=== PATIENT | male | born 1940 | race Caucasian/White ===

== ENCOUNTER 2016-06-21 11:58 | Outpatient (CLI) | payer MEDICARE, OTHER ==
[2016-06-21 12:44] LABS: Hemoglobin A1c 5.2 % (4.0-6.0)
== END 2016-06-21 11:59 | disposition home or self-care (01) ==
LOC: NAVSJIPCSP 11:58
PROVIDERS: ATTEND Internal Medicine
DX: E11.59 Type 2 diabetes mellitus with other circulatory complications (principal); Z79.899 Other long term (current) drug therapy
CPT/HCPCS: 36415; 83036

== ENCOUNTER 2016-07-23 09:57 | Outpatient (CLI) | payer MEDICARE ==
[2016-07-23 13:08] LABS: Anion Gap 15 mmol/L (10-20); BUN (Urea Nitrogen) 9 mg/dL (8.4-25.7); Calc. Creatinine Clearance 0 mL/min (70-130); Calcium 9.1 mg/dL (7.8-10.44); Carbon Dioxide 22 mmol/L (23-31); Chloride 100 mmol/L (98-107); Estimated GFR-MDRD 66; Glucose 105 mg/dL (83-110); Potassium 4.1 mmol/L (3.5-5.1); Sodium 133 mmol/L (136-145)
[2016-07-23 14:01] LABS: #Eosinphils 0.2 thou/uL (0.0-0.7); #Lymphocytes 0.7 thou/uL (1.20-3.40); #Monocytes 0.8 thou/uL (0.11-0.59); #Neutrophils 5.4 thou/uL (1.40-6.50); %Basophils 0.4 % (0.0-1.0); %Lymphocytes 9.7 % (21.0-51.0); %Monocytes 10.6 % (0.0-10.0); %Neutrophils 76.3 % (42.0-75.0); Hemoglobin 9.7 g/dL (14.0-18.0); Mean Corpuscular HGB CONC 31.1 g/dL (32.0-36.0); Mean Corpuscular Hemoglobin 28.8 pg (27.0-31.0); Mean Corpuscular Volume 92.8 fl (80.0-94.0); Mean Platelet Volume 6.3 fL (7.4-10.4); Platelet Count 134 thou/uL (130-400); RBC Distribution Width 17.3 % (11.5-14.5); Red Blood Cell (RBC) Count 3.35 mill/uL (4.70-6.10); White Blood Cell (WBC) Count 7.1 thou/uL (4.8-10.8)
== END 2016-07-23 09:58 | disposition home or self-care (01) ==
LOC: NAVSJIPCSP 09:57
PROVIDERS: ATTEND Internal Medicine
DX: R53.83 Other fatigue (principal); Z79.899 Other long term (current) drug therapy
CPT/HCPCS: 36415; 80048; 84443; 85025

== ENCOUNTER 2016-09-26 11:47 | Outpatient (CLI) | payer MEDICARE ==
[2016-09-26 14:00] LABS: Cardiac Risk 1.9 (Less than 4.5)
[2016-09-27 18:07] LABS: Hep C IgG Ab Non-Reactive (NonReactive); Hep C Index 0.23 S/CO (0-0.79)
== END 2016-09-26 11:48 | disposition home or self-care (01) ==
LOC: NAVSJIPCSP 11:47
PROVIDERS: ATTEND Internal Medicine
DX: E78.5 Hyperlipidemia, unspecified (principal); E11.59 Type 2 diabetes mellitus with other circulatory complications; Z72.89 Other problems related to lifestyle
CPT/HCPCS: 36415; 80061; 83036; 86803

== ENCOUNTER 2017-07-18 06:56 | Emergency (ER) | payer MEDICARE | END 2017-07-18 07:45 | disposition home or self-care (01) | LOC: NAV ERS 06:56 | DX: S10.91XA Abrasion of unspecified part of neck, initial encounter (principal); E78.5 Hyperlipidemia, unspecified; I10 Essential (primary) hypertension; Z87.891 Personal history of nicotine dependence; Z79.02 Long term (current) use of antithrombotics/antiplatelets; X58.XXXA Exposure to other specified factors, initial encounter | CPT/HCPCS: 99282 ==

== ENCOUNTER 2018-04-09 08:42 | Outpatient (CLI) | payer MEDICARE ==
--- NOTE | 2018-04-09 10:10 | ULT ---
RIGHT UPPER QUADARNT ULTRASOUND: HISTORY: Abnormal bilirubin. FINDINGS: Real-time imaging of the right upper quadrant was performed. This shows a slightly irregular appeara nce to the wall of the gallbladder. There is at least one area of echogenicity measuring 2-3 mm, pro bably a small polyp. This may indicate some adenomyomatosis. There are no gallstones identified. T he common duct is in the 4 mm range. Visualized liver parenchyma shows o focal abnormalities. The l iver measures 15 cm in length. The right kidney is normal size and is not obstructed. There is mild increased echogenicity. There is an oblong-shaped cyst arising from the lower pole region measuring 4.2 x 8.9 cm. IMPRESSION: 1. Changes of the gallbladder raising the possibility of adenomyomatosis. 2. No evidence of biliary ductal dilatation. 3. Obscured pancreas. 4. Mild increased echogenicity to the right kidney. This could indicate underlying medial renal par enchymal disease. There is an exophytic cystic-appearing are which appears to probably arise from th e lower pole of the right kidney. It measures 4.2 x 8.9 cm. POS: [facility]
== END 2018-04-09 08:43 | disposition home or self-care (01) ==
LOC: NAV ULT 08:42
PROVIDERS: ATTEND Internal Medicine
DX: R74.8 Abnormal levels of other serum enzymes (principal); E80.7 Disorder of bilirubin metabolism, unspecified; N28.89 Other specified disorders of kidney and ureter
CPT/HCPCS: 76705